=== PATIENT | female | born 1930 | race Caucasian/White ===

== ENCOUNTER 2017-04-15 12:40 | Inpatient (IN) | payer MEDICARE, BC ==
[~2017-04-15] VITALS: Ht 170.2 cm; Wt 62.1 kg
[~2017-04-15 12:40] MED LIST: ADULT LOW DOSE81 MG PO; ATENOLOL50 MG PO; BENTYL10 M1 PO; CIPRO250 M1 PO; FOLIC ACID PO; FOSINOPRIL SODI20 M1 PO; MASON NATURAL1000 IU PO; PYRIDIUM100 M1 PO; QUALITY CHOICE1 T27 PO; TOPCARE OMEPRAZ20 MG PO
[2017-04-15 12:55] VITALS: BP 138/53
[2017-04-15 18:32] VITALS: BP 154/61
[2017-04-16 06:38] VITALS: BP 96/53
[2017-04-16 08:15] VITALS: BP 128/50
[2017-04-16 10:23] VITALS: BP 116/46
[2017-04-16] MEDS ORDERED: FOLIC ACID1 MG PO (14:15)
[2017-04-16] MEDS ORDERED: ZESTRIL20 M1 PO (14:16)
[2017-04-16 18:11] VITALS: BP 132/45
[2017-04-17 06:26] VITALS: BP 115/45
[2017-04-17 07:49] VITALS: BP 137/52
[2017-04-17 18:28] VITALS: BP 138/83
[2017-04-18 06:37] VITALS: BP 135/47
[2017-04-18 18:44] VITALS: BP 130/64
[2017-04-19 06:34] VITALS: BP 110/57
[2017-04-19 18:20] VITALS: BP 67/40
[2017-04-20 06:15] VITALS: BP 125/51
[2017-04-20 18:46] VITALS: BP 106/44
[2017-04-20 21:49] VITALS: BP 103/49
[2017-04-21 06:17] VITALS: BP 118/47
[2017-04-21 18:29] VITALS: BP 138/61
[2017-04-22 06:17] VITALS: BP 96/42
[2017-04-22 18:06] VITALS: BP 118/42
[2017-04-23 06:24] VITALS: BP 100/38
[2017-04-23 18:20] VITALS: BP 111/44
[2017-04-24 06:27] VITALS: BP 120/45
[2017-04-24 10:32] VITALS: BP 124/50
[2017-04-24 17:57] VITALS: BP 115/55
[2017-04-25 06:07] VITALS: BP 107/43; BP 107/53
[2017-04-25 09:10] VITALS: BP 130/63
[2017-04-25 10:54] VITALS: BP 115/50
[2017-04-25 14:58] VITALS: BP 124/50
[2017-04-25 18:40] VITALS: BP 110/39
[2017-04-26 06:26] VITALS: BP 121/54
[2017-04-26 11:41] VITALS: BP 131/51
[2017-04-26 18:14] VITALS: BP 116/54
[2017-04-27 06:24] VITALS: BP 125/58
[2017-04-27] MEDS ORDERED: VITAMIN D 1001000 IU PO (08:16)
[2017-04-27] MEDS ORDERED: CLOPIDOGREL PO (08:16)
[2017-04-27] MEDS ORDERED: ACETAMINOPHEN325 M1 PO (08:16)
[2017-04-27] MEDS ORDERED: PEG 335017 GM/Dose PO (08:16)
[2017-04-27 18:15] VITALS: BP 117/42
[2017-04-28 06:30] VITALS: BP 112/47
[2017-04-28 10:07] VITALS: BP 146/58
== END 2017-04-28 10:25 | disposition home health service (06) | DRG 950 ==
LOC: MED/SURG 12:40 → PACU 17:12 → MED/SURG 19:17
PROVIDERS: ADMIT Physician Assistant
DX: Z48.812 Encounter for surgical aftercare following surgery on the circulatory system (principal); R53.81 Other malaise; Z95.2 Presence of prosthetic heart valve; I10 Essential (primary) hypertension; K58.9 Irritable bowel syndrome, unspecified; D64.9 Anemia, unspecified; R13.10 Dysphagia, unspecified; K21.9 Gastro-esophageal reflux disease without esophagitis; K22.2 Esophageal obstruction; I95.1 Orthostatic hypotension
CPT/HCPCS: A6531; J0834

== ENCOUNTER 2017-05-19 12:59 | Emergency (ER) | payer MEDICARE, BC ==
[~2017-05-19] VITALS: Ht 162.6 cm; Wt 61.4 kg
[~2017-05-19 12:59] MED LIST changes: +ACETAMINOPHEN325 M1 PO; +CLOPIDOGREL PO; +FOLIC ACID1 MG PO; +PEG 335017 GM/Dose PO; +VITAMIN D 1001000 IU PO; +ZESTRIL20 M1 PO
[2017-05-19] MEDS ORDERED: NORCO 325 MG-51 TA1 PO (16:34)
[2017-05-19 16:47] VITALS: BP 153/80
== END 2017-05-19 16:40 | disposition home or self-care (01) ==
LOC: ED 12:59
DX: M94.0 Chondrocostal junction syndrome [Tietze] (principal); R06.00 Dyspnea, unspecified; D64.9 Anemia, unspecified; Z79.02 Long term (current) use of antithrombotics/antiplatelets; K21.9 Gastro-esophageal reflux disease without esophagitis
CPT/HCPCS: J3010; Q9967

== ENCOUNTER 2017-06-07 11:44 | Outpatient (RCR) | payer MEDICARE, BC ==
[~2017-06-07 11:44] MED LIST changes: +NORCO 325 MG-51 TA1 PO
== END 2017-09-05 | disposition home or self-care (01) ==
LOC: CARDREHAB
DX: Z48.812 Encounter for surgical aftercare following surgery on the circulatory system (principal); Z95.2 Presence of prosthetic heart valve

== ENCOUNTER 2017-06-14 08:24 | Outpatient (RCR) | payer MEDICARE, BC | END 2017-06-23 15:13 | LOC: OPPGERO 08:24 | DX: F33.9 Major depressive disorder, recurrent, unspecified (principal) ==

== ENCOUNTER 2017-06-25 09:00 | Outpatient (RCR) | payer MEDICARE, BC | END 2017-07-25 16:15 | LOC: OPPGERO 09:00 | DX: F33.9 Major depressive disorder, recurrent, unspecified (principal) ==

== ENCOUNTER → 2017-07-05 | Outpatient (CLI) | payer MEDICARE, BC | LOC: MAMMO 14:15 | DX: Z12.31 Encounter for screening mammogram for malignant neoplasm of breast (principal) | CPT/HCPCS: G0202 ==

== ENCOUNTER 2017-07-26 08:43 | Outpatient (RCR) | payer MEDICARE, BC | END 2017-08-24 13:04 | LOC: OPPGERO 08:43 | DX: F33.9 Major depressive disorder, recurrent, unspecified (principal) ==

== ENCOUNTER 2017-09-06 13:00 | Outpatient (RCR) | payer MEDICARE, BC | END 2017-10-24 15:00 | disposition home or self-care (01) | LOC: CARDREHAB 13:00 | DX: Z48.812 Encounter for surgical aftercare following surgery on the circulatory system (principal); Z95.2 Presence of prosthetic heart valve ==

== ENCOUNTER → 2018-03-20 | Outpatient (CLI) | payer MEDICARE, BC | LOC: RAD 07:28 | DX: M79.662 Pain in left lower leg (principal) ==

== ENCOUNTER 2018-05-25 09:00 | Outpatient (RCR) | payer MEDICARE, BC | END 2018-05-25 09:30 | disposition home or self-care (01) | LOC: PT 09:00 | DX: M25.562 Pain in left knee (principal); M25.561 Pain in right knee; Z96.652 Presence of left artificial knee joint | CPT/HCPCS: G8978-GP; G8979-GP ==

== ENCOUNTER → 2018-07-12 | Outpatient (CLI) | payer MEDICARE, BC | LOC: RAD 13:00 | DX: N64.4 Mastodynia (principal) ==

== ENCOUNTER → 2018-08-23 | Outpatient (CLI) | payer MEDICARE, BC ==
[2018-08-23 11:17] LABS: BASO # 0.1 (0.02-0.10); EOS # 0.3 (0.04-0.40); EOS % 4.1 % (1.0-5.0); HEMATOCRIT 36.8 % (37.0-47.0); HEMOGLOBIN 11.4 g/dL (12.5-16.0); LYMPH# 2.2 (1.50-4.00); MEAN CELL VOLUME 86 fl (78-100); MEAN CORPUSCULAR HEMOGLOBIN 27 pg (27-31); MEAN CORPUSCULAR HGB CONC 31 g/dL (33-37); MEAN PLATELET VOLUME 9.4 fl (7.4-10.4); MONO # 0.6 (0.20-0.80); NEU # 3.9 (1.40-6.50); PLATELET COUNT 375 K/mm3 (130-400); RED BLOOD COUNT 4.26 M/mm3 (4.10-5.30); RED CELL DISTRIBUTION WIDTH 14.9 % (11.5-14.5)
[2018-08-23 11:35] LABS: ALBUMIN 4.5 g/dL (3.5-5.0); CALCIUM 9.5 mg/dL (8.4-10.2); POTASSIUM 4.2 mmol/L (3.6-5.0); TOTAL BILIRUBIN 0.5 mg/dL (0.2-1.3); TOTAL PROTEIN 7.8 g/dL (6.3-8.2)
[2018-08-24 02:41] LABS: IEPS IGA 239 mg/dL (69-517); IEPS IGG 855 mg/dL (552-1631); IEPS TP 7.2 g/dL (6.0-7.6)
[2018-08-24 08:37] LABS: HAPTOGLOBIN 195 mg/dL (36-195)
[2018-08-24 12:28] LABS: ALPHA 1 FRACTION 0.4 g/dL (0.3-0.5); ALPHA 1 PERCENT 4.8 % (3.4-8.3); ALPHA 2 FRACTION 1.1 g/dL (0.6-1.2); ALPHA 2 PERCENT 14.8 % (8.4-17.5); BETA 1 FRACTION 0.5 g/dL (0.4-0.6); BETA 1 PERCENT 7.5 % (5.4-8.9); BETA 2 FRACTION 0.4 g/dL (0.2-0.5); BETA 2 PERCENT 5.2 % (3.8-7.7); IEPS GAMMA FRACTION 0.9 g/dL (0.4-1.7); IEPS GAMMA PERCENTAGE 12.7 % (8.1-23.0); IEPS IGM 227 mg/dL (33-293)
== END ==
LOC: RAD 09:50
PROVIDERS: Internal Medicine
DX: D47.2 Monoclonal gammopathy (principal)

== ENCOUNTER → 2019-02-20 | Outpatient (CLI) | payer MEDICARE, BC ==
[2019-02-20 16:05] LABS: ALBUMIN 3.9 g/dL (3.4-4.8); CALCIUM 9.7 mg/dL (8.3-10.5); POTASSIUM 3.9 mmol/L (3.5-5.1); TOTAL BILIRUBIN 0.2 mg/dL (0.2-1.2); TOTAL PROTEIN 7.2 g/dL (6.2-8.1)
[2019-02-20 16:17] LABS: BASO # 0.1 (0.02-0.10); EOS # 0.2 (0.04-0.40); EOS % 2.6 % (1.0-5.0); HEMATOCRIT 35.6 % (37.0-47.0); LYMPH# 2.3 (1.50-4.00); MEAN CELL VOLUME 86 fl (78-100); MEAN CORPUSCULAR HEMOGLOBIN 27 pg (27-31); MEAN CORPUSCULAR HGB CONC 31 g/dL (33-37); MEAN PLATELET VOLUME 10.1 fl (7.4-10.4); MONO # 0.6 (0.20-0.80); NEU # 4.8 (1.40-6.50); PLATELET COUNT 286 K/mm3 (130-400); RED BLOOD COUNT 4.12 M/mm3 (4.10-5.30); WHITE BLOOD COUNT 8.1 K/mm3 (4.8-10.8)
[2019-02-20 23:15] LABS: IEPS IGA 239 mg/dL (69-517); IEPS IGG 875 mg/dL (552-1631); IEPS TP 6.9 g/dL (6.0-7.6)
[2019-02-25 14:14] LABS: ALBUMIN FRACTION 4.1 g/dL (2.6-4.5); ALPHA 1 FRACTION 0.3 g/dL (0.3-0.5); ALPHA 1 PERCENT 4.3 % (3.4-8.3); ALPHA 2 FRACTION 0.9 g/dL (0.6-1.2); ALPHA 2 PERCENT 13.4 % (8.4-17.5); BETA 1 FRACTION 0.5 g/dL (0.4-0.6); BETA 1 PERCENT 6.6 % (5.4-8.9); BETA 2 FRACTION 0.3 g/dL (0.2-0.5); BETA 2 PERCENT 4.8 % (3.8-7.7); IEPS GAMMA FRACTION 0.8 g/dL (0.4-1.7); IEPS GAMMA PERCENTAGE 11.9 % (8.1-23.0); IEPS IGM 221 mg/dL (33-293)
== END ==
LOC: CANPRECLI → LAB 12:57
PROVIDERS: Internal Medicine
DX: D47.2 Monoclonal gammopathy (principal)

== ENCOUNTER 2019-03-07 12:47 | Emergency (ER) | payer MEDICARE, BC ==
[~2019-03-07] VITALS: Ht 160 cm; Wt 61.4 kg
[2019-03-07 13:18] LABS: BASO # 0.1 (0.02-0.10); EOS # 0.3 (0.04-0.40); EOS % 4.2 % (1.0-5.0); HEMATOCRIT 35.4 % (37.0-47.0); LYMPH# 2.7 (1.50-4.00); MEAN CELL VOLUME 86 fl (78-100); MEAN CORPUSCULAR HEMOGLOBIN 27 pg (27-31); MEAN CORPUSCULAR HGB CONC 31 g/dL (33-37); MEAN PLATELET VOLUME 9.9 fl (7.4-10.4); MONO # 0.6 (0.20-0.80); NEU # 4.2 (1.40-6.50); PLATELET COUNT 312 K/mm3 (130-400); RED BLOOD COUNT 4.14 M/mm3 (4.10-5.30); RED CELL DISTRIBUTION WIDTH 15.2 % (11.5-14.5); WHITE BLOOD COUNT 7.9 K/mm3 (4.8-10.8)
[2019-03-07 13:19] LABS: PROTHROMBIN TIME 9.8 SECONDS (9.0-12.0)
[2019-03-07 13:26] LABS: CALCIUM 9.8 mg/dL (8.3-10.5); POTASSIUM 4.5 mmol/L (3.5-5.1); TOTAL BILIRUBIN 0.3 mg/dL (0.2-1.2); TOTAL PROTEIN 7.4 g/dL (6.2-8.1)
[2019-03-07 14:54] LABS: URINE APPEARANCE CLEAR; URINE BILIRUBIN NEGATIVE (NEGATIVE); URINE BLOOD NEGATIVE (NEGATIVE); URINE COLOR YELLOW; URINE GLUCOSE NEGATIVE (NEGATIVE); URINE KETONE NEGATIVE (NEGATIVE); URINE LEUKOCYTE ESTERASE NEGATIVE (NEGATIVE); URINE NITRATE NEGATIVE (NEGATIVE); URINE PROTEIN(semi-quant) TRACE mg/dL (NEGATIVE); URINE UROBILINOGEN NORMAL (NORMAL)
[2019-03-07 15:15] VITALS: BP 187/79
== END 2019-03-07 15:15 | disposition home or self-care (01) ==
LOC: ED 12:47
PROVIDERS: Nurse Practitioner Primary Care
DX: G45.9 Transient cerebral ischemic attack, unspecified (principal); I10 Essential (primary) hypertension; K21.9 Gastro-esophageal reflux disease without esophagitis; Z90.49 Acquired absence of other specified parts of digestive tract; Z90.710 Acquired absence of both cervix and uterus; Z95.9 Presence of cardiac and vascular implant and graft, unspecified; Z79.82 Long term (current) use of aspirin

== ENCOUNTER → 2019-03-11 | Outpatient (CLI) | payer MEDICARE, BC ==
[2019-03-07 15:15] VITALS: BP 187/79
== END ==
LOC: VAS 13:53
DX: G45.9 Transient cerebral ischemic attack, unspecified (principal); I08.1 Rheumatic disorders of both mitral and tricuspid valves; Z95.4 Presence of other heart-valve replacement; Z86.73 Personal history of transient ischemic attack (TIA), and cerebral infarction without residual deficits

== ENCOUNTER → 2019-03-13 | Outpatient (CLI) | payer MEDICARE, BC ==
[2019-03-07 15:15] VITALS: BP 187/79
== END ==
LOC: RAD 08:28
DX: G45.9 Transient cerebral ischemic attack, unspecified (principal); I67.82 Cerebral ischemia; G31.9 Degenerative disease of nervous system, unspecified; R20.2 Paresthesia of skin